=== PATIENT | male | born 1955 | race Caucasian/White ===

== ENCOUNTER 2017-09-23 12:37 | Day surgery (SDC) | payer OTHER ==
[~2017-09-23] VITALS: Ht 189.2 cm; Wt 85.8 kg
[2017-09-23] VITALS (7 sets, daily range): BP systolic 126–144; BP diastolic 81–98; PULSE 74–89; TEMP 97.7–98.5
[2017-09-23] MEDS ORDERED: ASPIRIN 81M81 MG/TA2 PO (13:20)
[2017-09-23] MEDS ORDERED: PREVACID24HROTC PO (13:21)
[2017-09-23] MEDS ORDERED: BENADRYL25 M2 PO (13:24)
== END 2017-09-23 16:32 | disposition home or self-care (01) ==
LOC: SDCO 12:37
DX: Z12.11 Encounter for screening for malignant neoplasm of colon (principal); K63.5 Polyp of colon; K22.70 Barrett's esophagus without dysplasia; K57.30 Diverticulosis of large intestine without perforation or abscess without bleeding; K21.9 Gastro-esophageal reflux disease without esophagitis
CPT/HCPCS: OP; J2250; J3010; J7030